=== PATIENT | female | born 1960 | race Two or more races ===

== ENCOUNTER 2020-05-13 12:07 | Emergency (ER) | payer OTHER ==
[~2020-05-13] VITALS: Ht 157.5 cm; Wt 81.2 kg
[~2020-05-13 12:07] MED LIST: HYDR25TA6 PO
[2020-05-13 12:31] LABS: BASOPHILS % (AUTO) 1 % (0-1); EOSINOPHILS % (AUTO) 2 % (1-7); LYMPHOCYTES % (AUTO) 37 % (22-44); MEAN CORPUSCULAR HGB CONC 32.8 g/dL (32.4-35.8); MEAN PLATELET VOLUME 11.1 fL (7.4-10.4); MONOCYTES % (AUTO) 6 % (2-9); NEUTROPHILS % (AUTO) 53 % (42-75); PLATELET COUNT 164 x10^3/uL (130-400); RED CELL DISTRIBUTION WIDTH 13.2 % (9.6-15.2)
[2020-05-13 12:35] LABS: MD NO
[2020-05-13 12:44] LABS: ALANINE AMINOTRANSFERASE 276 U/L (12-78); ALBUMIN 3.6 g/dL (3.4-5.0); ANION GAP 7 mmol/L (5-15); CALCIUM 9.4 mg/dL (8.5-10.1); CHLORIDE 108 mmol/L (98-107); CREATININE 0.72 mg/dL (0.55-1.02)
[2020-05-13 12:46] LABS: ALKALINE PHOSPHATASE 209 U/L (45-117); BILIRUBIN,TOTAL 0.4 mg/dL (0.2-1.0); TOTAL PROTEIN 7.8 g/dL (6.4-8.2)
--- NOTE | 2020-05-13 12:57 | NUR ---
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
--- NOTE | 2020-05-13 13:09 | NUR ---
PT PLACED IN GOWN, WARM BLANKET PROVIDED, CALL LIGHT WITHIN REACH. PT STATES RUQ PAIN INTERMITTENT FOR A YEAR, WORSENING OVER PAST WEEK. CONSTANT SINCE LAST NIGHT. INTERMITTENT DIARRHEA. PT STATES PAIN WORSE AFTER EATING. URINE COLLECTED/SENT TO LAB. US AT BS. FAMILY AT BS.
--- NOTE | 2020-05-13 13:30 | NUR ---
IV PLACED. PT INSTRUCTED ON US RESULTS BY DR HAYWARD. PT UPDATED ON POC TO INCLUDE SURGERY. PT VERBALIZED UNDERSTANDING NPO. LAST MEAL BREAKFAST AT 0800.
[2020-05-13 13:33] LABS: MICROSCOPIC NOT IND
[2020-05-13] MEDS ORDERED: METF500T17 PO (13:33)
[2020-05-13] MEDS ORDERED: MORPHINE SULFATE 4 MG/ML, 1ML ONE (13:48)
[2020-05-13] MEDS ORDERED: ONDANSETRON 2MG/ML, 2ML ONE (13:48)
[2020-05-13 14:00] VITALS: BP 162/89
[2020-05-13] MEDS ORDERED: ONDANSETRON 2MG/ML, 2ML IVPush ONE (14:00)
[2020-05-13] MEDS ORDERED: MORPHINE SULFATE 4 MG/ML, 1ML IVPush ONE (14:00)
== END 2020-05-13 14:12 | disposition home or self-care (01) ==
LOC: ED 14:00
DX: K80.20 Calculus of gallbladder without cholecystitis without obstruction (principal); K76.0 Fatty (change of) liver, not elsewhere classified; E11.65 Type 2 diabetes mellitus with hyperglycemia; I10 Essential (primary) hypertension
CPT/HCPCS: 36415; 76700; 80053; 81003; 83690; 85025; 96374; 96375; 99284; J2270; J2405

== ENCOUNTER 2020-05-18 23:07 | Observation (INO) | payer OTHER ==
[~2020-05-18] VITALS: Ht 165.1 cm; Wt 87.0 kg
[~2020-05-18 23:07] MED LIST changes: +METF500T17 PO
[2020-05-18] MEDS ORDERED: MORPHINE SULFATE 4 MG/ML, 1ML IVPush PRN (23:30)
[2020-05-18] MEDS ORDERED: SODIUM CHLORIDE FLUSH 10ML SYR IVF ONE (23:30)
[2020-05-18] MEDS ORDERED: ONDANSETRON 2MG/ML, 2ML IVPush ONE (23:30)
[2020-05-18 23:46] LABS: BASOPHILS % (AUTO) 1 % (0-1); EOSINOPHILS % (AUTO) 1 % (1-7); LYMPHOCYTES % (AUTO) 40 % (22-44); MEAN CORPUSCULAR HEMOGLOBIN 30.3 pg (27.0-34.8); MEAN CORPUSCULAR HGB CONC 33.7 g/dL (32.4-35.8); MEAN PLATELET VOLUME 12.1 fL (7.4-10.4); MONOCYTES % (AUTO) 6 % (2-9); NEUTROPHILS % (AUTO) 53 % (42-75); PLATELET COUNT 146 x10^3/uL (130-400); RED BLOOD COUNT 5.02 x10^6/uL (3.82-5.3); RED CELL DISTRIBUTION WIDTH 13.4 % (9.6-15.2)
[2020-05-18 23:47] LABS: ALANINE AMINOTRANSFERASE 96 U/L (12-78); ALBUMIN 3.8 g/dL (3.4-5.0); ANION GAP 8 mmol/L (5-15); CALCIUM 8.7 mg/dL (8.5-10.1); CHLORIDE 100 mmol/L (98-107)
[2020-05-18 23:50] LABS: ALKALINE PHOSPHATASE 160 U/L (45-117); BILIRUBIN,TOTAL 0.7 mg/dL (0.2-1.0); CREATININE 0.91 mg/dL (0.55-1.02); MD NO; TOTAL PROTEIN 8.2 g/dL (6.4-8.2)
[2020-05-18] MEDS ORDERED: MORPHINE SULFATE 4 MG/ML, 1ML ONE (23:57)
[2020-05-18] MEDS ORDERED: ONDANSETRON 2MG/ML, 2ML ONE (23:57)
--- NOTE | 2020-05-19 00:03 | NUR ---
US AT BEDSIDE. SON AT BEDSIDE. PT LAYING IN GURNEY, RESPIRATIONS EVEN AND UNLABROED. JANEL.
--- NOTE | 2020-05-19 00:53 | NUR ---
PT STATES MOSTLY RELEIVED FROM PAIN, DENIES MORPHINE AT THIS TIME. REPOSITIONED FOR COMFORT.
--- NOTE | 2020-05-19 01:35 | NUR ---
ERP BACK TO BEDSIDE TO UPDATE PT ON POC. ALL QUESTIONS ANSWERED.
--- NOTE | 2020-05-19 01:53 | NUR ---
FIRST ATTEMPT TO CALL REPORT.
--- NOTE | 2020-05-19 02:19 | NUR ---
SECOND ATTEMPT TO CALL REPORT.
--- NOTE | 2020-05-19 02:26 | NUR ---
REPORT TO HOWARD BARBER. PT REMAINS IN [facility], CONNECTED TO BP AND O2 MONITORS.
[2020-05-19] MEDS ORDERED: ONDANSETRON 2MG/ML, 2ML IVPush PRN (02:30)
[2020-05-19] MEDS ORDERED: LABETALOL 5MG/ML, 20ML IVPush PRN (02:30)
[2020-05-19] MEDS ORDERED: IBUPROFEN 600 MG TABLET PO PRN (02:30)
[2020-05-19] MEDS ORDERED: HYDROcodone/APAP 5/325 TABLET PO PRN ×2 (02:30→18:00)
[2020-05-19] MEDS ORDERED: morphine SULFATE 10 MG/ML, 1ML IVPush PRN ×2 (02:30→17:00)
[2020-05-19] MEDS ORDERED: DOCUSATE 100 MG CAPSULE PO PRN (02:30)
[2020-05-19 03:03] VITALS: BP 134/83
[2020-05-19] MEDS ORDERED: ATOR40TA PO (03:44)
[2020-05-19] MEDS ORDERED: HYDR-3240 PO (03:44)
[2020-05-19] MEDS ORDERED: LISI-170 PO (03:44)
[2020-05-19] MEDS: SODIUM CHLORIDE 0.9% 1,000 ML IV SCH ×2 (04:09→09:10)
[2020-05-19] MEDS: HEPARIN 5,000 UNITS/ML, 1ML SQ SCH ×3 (04:17→18:30)
[2020-05-19] MEDS: INSULIN LISPRO 100 UNITS/ML, PEN SQ-INSULIN SCH ×4 (07:00→21:55)
[2020-05-19 08:28] VITALS: BP 137/75
[2020-05-19 12:45] VITALS: BP 157/78
[2020-05-19] MEDS ORDERED: EPINEPHRINE 1 MG/ML, 1ML ONE (16:02)
[2020-05-19] MEDS ORDERED: BUPIVACAINE/PF 0.5% ONE (16:02)
[2020-05-19] MEDS ORDERED: FENTANYL PF 250 MCG/5ML ONE (16:27)
[2020-05-19] MEDS ORDERED: MIDAZOLAM 1 MG/ML, 2ML ONE (16:27)
[2020-05-19] MEDS ORDERED: GLYCOPYRROLATE 0.2MG/1ML, 5ML ONE (16:30)
[2020-05-19] MEDS ORDERED: ROCURONIUM 10MG/ML,5ML ONE (16:30)
[2020-05-19] MEDS ORDERED: DEXAMETHASONE 4 MG/ML, 1ML ONE (16:30)
[2020-05-19] MEDS ORDERED: CEFAZOLIN 1,000 MG ONE (16:30)
[2020-05-19] MEDS ORDERED: ONDANSETRON 2MG/ML, 2ML ONE (16:30)
[2020-05-19] MEDS ORDERED: PROPOFOL 10 MG/ML, 20ML ONE (16:30)
[2020-05-19] MEDS ORDERED: NEOSTIGMINE 1 MG/ML, 10ML ONE (16:30)
[2020-05-19] MEDS ORDERED: HYDROmorphone 1 MG/ML, 1ML INJ IVPush PRN (17:00)
[2020-05-19] MEDS ORDERED: HALOPERIDOL 5 MG/ML IV PRN (17:00)
[2020-05-19] MEDS ORDERED: OXYcodone 5 MG/5 ML ORAL.SOL UDC PO PRN (17:00)
[2020-05-19] MEDS ORDERED: MEPERIDINE/PF 25MG/0.5ML IVPush PRN (17:00)
[2020-05-19] MEDS ORDERED: FENTANYL PF 100 MCG/2ML IV PRN (17:00)
[2020-05-19] MEDS ORDERED: PROMETHAZINE 25 MG/ML, 1ML IVPush PRN (17:00)
[2020-05-19] MEDS ORDERED: hydrALAzine 20 MG/ML, 1ML IV PRN (17:00)
[2020-05-19] MEDS ORDERED: CEFOTETAN PMX 2GM/50ML 50 ML IVPB ONE (17:00)
[2020-05-19] MEDS ORDERED: LABETALOL 5MG/ML, 20ML IV PRN (17:00)
[2020-05-19] MEDS ORDERED: ACETAMINOPHEN 325 MG TABLET PO PRN (17:00)
[2020-05-19] MEDS ORDERED: BUPIVACAINE/PF-EPI 0.5% 1:200K INFIL ONE (17:17)
[2020-05-19] MEDS ORDERED: KETOROLAC 30 MG/1 ML ONE (17:29)
[2020-05-19] MEDS ORDERED: OXYcodone 5 MG/5 ML ORAL.SOL UDC ONE (18:09)
[2020-05-19] MEDS ORDERED: ACETAMINOPHEN 650 MG/20.3 ML UDC ONE (18:09)
[2020-05-19] MEDS ORDERED: MEPERIDINE/PF 25MG/ML,1ML ONE (18:17)
[2020-05-19 21:03] VITALS: BP 114/70
[2020-05-20 00:29] VITALS: BP 156/76
[2020-05-20] MEDS: HEPARIN 5,000 UNITS/ML, 1ML SQ SCH ×2 (02:40→11:29)
[2020-05-20 03:33] VITALS: BP 147/74
[2020-05-20 06:31] LABS: BASOPHILS % (AUTO) 0 % (0-1); EOSINOPHILS % (AUTO) 0 % (1-7); LYMPHOCYTES % (AUTO) 19 % (22-44); MEAN CORPUSCULAR HEMOGLOBIN 30.1 pg (27.0-34.8); MEAN CORPUSCULAR HGB CONC 32.8 g/dL (32.4-35.8); MEAN PLATELET VOLUME 11.5 fL (7.4-10.4); MONOCYTES % (AUTO) 4 % (2-9); NEUTROPHILS % (AUTO) 77 % (42-75); PLATELET COUNT 147 x10^3/uL (130-400); RED BLOOD COUNT 4.51 x10^6/uL (3.82-5.3)
[2020-05-20 06:33] LABS: ALBUMIN 3.3 g/dL (3.4-5.0); ANION GAP 7 mmol/L (5-15); CALCIUM 8.4 mg/dL (8.5-10.1); CHLORIDE 105 mmol/L (98-107)
[2020-05-20 06:37] LABS: ALANINE AMINOTRANSFERASE 86 U/L (12-78); ALKALINE PHOSPHATASE 116 U/L (45-117); BILIRUBIN,TOTAL 0.6 mg/dL (0.2-1.0); CREATININE 0.77 mg/dL (0.55-1.02); TOTAL PROTEIN 7.2 g/dL (6.4-8.2)
[2020-05-20 06:45] LABS: MD NO
[2020-05-20 07:46] VITALS: BP 145/78
[2020-05-20] MEDS: INSULIN LISPRO 100 UNITS/ML, PEN SQ-INSULIN SCH ×2 (07:54→11:00)
[2020-05-20 13:14] VITALS: BP 119/78
== END 2020-05-20 13:47 | disposition home or self-care (01) ==
LOC: ED 05-19 01:45 → INTOOBSV 05-19 02:03 → OBSVTOIN 05-19 02:03 → EDIP 05-19 02:03 → 4NE 05-19 02:44
PROVIDERS: ADMIT Family Medicine; ATTEND Family Medicine
DX: K80.20 Calculus of gallbladder without cholecystitis without obstruction (principal); Z20.828 Contact with and (suspected) exposure to other viral communicable diseases; E11.9 Type 2 diabetes mellitus without complications; I10 Essential (primary) hypertension; E87.1 Hypo-osmolality and hyponatremia; E78.5 Hyperlipidemia, unspecified; Z79.899 Other long term (current) drug therapy; Z79.84 Long term (current) use of oral hypoglycemic drugs
CPT/HCPCS: 36415; 47562; 76700; 80053; 82962; 83690; 85025; 87635; 88304; 96361; 96365; 96372; 96375; 99284; C1729; G0378; J0171; J0690; J1100; J1644; J1815; J1885; J2175; J2250; J2270; J2405; J2704; J2710; J3010; J7030; S0020